=== PATIENT | male | born 1960 | race Caucasian/White ===

== ENCOUNTER → 2017-02-27 | Outpatient (CLI) | payer OTHER | LOC: FIMAGING 10:26 | PROVIDERS: ATTEND Family Medicine | DX: N50.82 Scrotal pain (principal); I86.1 Scrotal varices ==

== ENCOUNTER → 2017-04-16 | Outpatient (CLI) | payer OTHER | LOC: FIMAGING 16:10 | PROVIDERS: ATTEND Family Medicine | DX: I82.4Z2 Acute embolism and thrombosis of unspecified deep veins of left distal lower extremity (principal) ==

== ENCOUNTER 2017-11-21 12:40 | Emergency (ER) | payer OTHER ==
[2017-11-21 12:57] VITALS: TEMP 98.1
--- NOTE | 2017-11-21 13:35 | CPEKG ---
Heart Rate: 43 RR Interval: 1395 P-R Interval: 216 QRSD Interval: 104 QT Interval: 464 QTC Interval: 393 P [place]: 42 QRS [place]: 26 T Wave [place]: 41 EKG Severity - OTHERWISE NORMAL ECG - EKG Impression: SINUS BRADYCARDIA Electronically Signed By: Richi Carter 21-Nov-2017 13:54:18
[2017-11-21] MEDS ORDERED: ASPIRIN 81 MG CHEWABLE TAB PO ONE (13:48)
[2017-11-21] MEDS ORDERED: NS 500 ML IV ONE (13:48)
--- NOTE | 2017-11-21 13:56 | EDPHY ---
H & P Stated Complaint: CP SINCE EARLY AM. REPRODUCABLE Time Seen by Provider: 11/21/17 13:45 HPI/ROS: CHIEF COMPLAINT: Chest pain HISTORY OF PRESENT ILLNESS: The patient is a 56-year-old man who comes to the emergency department complaining of left-sided chest pain that began this morning while he was on the toilet. It is been present for approximately 6 hr. No fever. No shortness of breath. No nausea vomiting or lightheadedness. No diaphoresis. The patient denies having any cardiac or pulmonary history. He does have a history of DVT last year after vein stripping procedure for the varicose veins. He was on blood thinners for 6 months but is not currently. He states the pain is somewhat worsened by deep inspiration or moving and twisting his ribs. REVIEW OF SYSTEMS: Constitutional: denies: chills, fever, recent illness, recent injury EENTM: denies: blurred vision, double vision, nose congestion Respiratory: denies: cough, shortness of breath Cardiac: See HPI denies: irregular heart rate, lightheadedness, palpitations Gastrointestinal/Abdominal: denies: abdominal pain, diarrhea, nausea, vomiting, blood streaked stools Genitourinary: denies: dysuria, frequency, hematuria, pain Musculoskeletal: denies: joint pain, muscle pain Skin: denies: lesions, rash, jaundice, bruising Neurological: denies: headache, numbness, paresthesia, tingling, dizziness, weakness Hematologic/Lymphatic: denies: blood clots, easy bleeding, easy bruising Immunologic/allergic: denies: HIV/AIDS, transplant EXAM: GENERAL: Well-appearing, well-nourished and in no acute distress. HEAD: Atraumatic, normocephalic. EYES: Pupils equal round and reactive to light, extraocular movements intact, sclera anicteric, conjunctiva are normal. ENT: TMs normal, nares patent, oropharynx clear without exudates. Moist mucous membranes. NECK: Normal range of motion, supple without lymphadenopathy or JVD. LUNGS: Breath sounds clear to auscultation bilaterally and equal. No wheezes rales or rhonchi. HEART: Regular rate and rhythm without murmurs, rubs or gallops. ABDOMEN: Soft, nontender, normoactive bowel sounds. No guarding, no rebound. No masses appreciated. BACK: No CVA tenderness, no spinal tenderness, step-offs or deformities EXTREMITIES: Normal range of motion, no pitting or edema. No clubbing or cyanosis. NEUROLOGICAL: Cranial nerves II through XII grossly intact. Normal speech, normal gait. 5/5 strength, normal movement in all extremities, normal sensation PSYCH: Normal mood, normal affect. SKIN: Warm, dry, normal turgor, no visible rashes or lesions. Source: Patient Exam Limitations: No limitations - Personal History Current Tetanus/Diphtheria Vaccine: Yes Current Tetanus Diphtheria and Acellular Pertussis (TDAP): Yes - Medical/Surgical History Hx Asthma: No Hx Chronic Respiratory Disease: No Hx Diabetes: No Hx Cardiac Disease: No Hx Renal Disease: No Hx Cirrhosis: No Hx Alcoholism: No Hx HIV/AIDS: No Hx Splenectomy or Spleen Trauma: No Other PMH: sleep apnea/vertigo, DVT - Family History Significant Family History: No pertinent family hx - Social History Smoking Status: Never smoked Alcohol Use: Occasionally Drug Use: None Constitutional: Initial Vital Signs Temperature (C) 36.7 C 11/21/17 12:54 Heart Rate 58 L 11/21/17 12:54 Respiratory Rate 17 11/21/17 12:54 Blood Pressure 128/74 H 11/21/17 12:54 O2 Sat (%) 97 11/21/17 12:54 O2 Delivery Mode Room Air Allergies/Adverse Reactions: No Known Allergies Allergy (Unverified 03/13/15 14:32) Home Medications: Medication Instructions Recorded NK [No Known Home Meds] 02/13/16 Medical Decision Making - Diagnostics EKG Interpretation: An EKG obtained and was read and documented in trace view. Please see trace view for full reading and report. Sinus bradycardia, no acute ischemic changes Imaging: Discussed imaging studies w/ hog operator Radiologist ED Course/Re-evaluation: I returned the patient's from several times she discusses test results. He is asymptomatic. His CT is negative. He is eager to go. He thinks that his pain is from a difficult work out he had the other day. He declines further workup or observation. We discussed follow-up with his primary Dr. Marx. We also discussed indications for returning. Differential Diagnosis: Partial list of the Differential diagnosis considered include but were not limited to; acute coronary disease, muscle strain, muscle wall pain, PE and although unlikely based on the history and physical exam, I also considered dissection, ammonia, pneumothorax, pleurisy. I discussed these differential diagnoses and the plan with the patient as well as the usual and expected course. The patient understands that the diagnosis is provisional and that in medicine we are not always correct and that further workup is often warranted. Usual and customary warnings were given. All of the patient's questions were answered. The patient was instructed to return to the emergency department should the symptoms at all worsen or return, otherwise to followup with the physician as we discussed. - Data Points Laboratory Results: Laboratory Results 11/21/17 13:55 11/21/17 13:55 Medications Given: Discontinued Medications Aspirin (Aspirin) 324 mg PO EDNOW ONE Stop: 11/21/17 13:49 Last Admin: 11/21/17 14:05 Dose: 324 mg Sodium Chloride (Ns) 500 mls @ 0 mls/hr IV EDNOW ONE; Wide Open PRN Reason: Protocol Stop: 11/21/17 13:49 Last Admin: 11/21/17 14:05 Dose: 500 mls Departure - Departure Disposition: Home, Routine, Self-Care Clinical Impression: Chest pain Qualifiers: Chest pain type: unspecified Qualified Code(s): R07.9 - Chest pain, unspecified Condition: Fair Instructions: Chest Pain (ED) Referrals: Marcia Marx MD [Primary Care Provider] - 2-3 days, call for appt.
[2017-11-21 14:31] LABS: PLATELET COUNT 246 10^3/uL (150-400)
[2017-11-21 14:42] LABS: INR 0.99 (0.83-1.16); PROTIME(PATIENT) 13.3 SEC (12.0-15.0)
[2017-11-21] MEDS ORDERED: IOPAMIDOL (ISOVUE 370) 100 ML BTL IV ONE (15:49)
[2017-11-21 16:59] VITALS: BP 138/80; PULSE 76; RESP 16; O2SAT 98
== END 2017-11-21 16:59 | disposition home or self-care (01) ==
DX: R07.9 Chest pain, unspecified (principal); E86.9 Volume depletion, unspecified
CPT/HCPCS: 82607-90; Q9967